=== PATIENT | male | born 1995 ===

== ENCOUNTER 2017-08-19 10:07 | Emergency (ER) | payer MEDICAID ==
[2017-08-19 10:07] VITALS: BMI 24.3
[2017-08-19 10:15] VITALS: BP 106/63; PULSE 60; RESP 20; TEMP 97.4; O2SAT 100
--- NOTE | 2017-08-19 10:30 | ED PDOC ---
HPI: General Adult Time Seen by Provider: 08/19/17 10:30 Chief Complaint (Nursing): Allergic Reaction Chief Complaint (Provider): sore throat History Per: Patient Additional Complaint(s): 22-year-old male presents with sore throat for 2 days. Patient states that throat feels inflamed and itchy. He is tolerating liquids and solids and denies shortness of breath. Patient is also requesting to be tested for gonorrhea and Chlamydia. Patient states during intercourse a couple days ago the condom broke. He denies any symptoms of any STD at this time. No dysuria, penile discharge, rash or lesions to genitalia. No cough, fever or chills. PMD: Dr. Gomez Past Medical History Reviewed: Historical Data, Nursing Documentation, Vital Signs Vital Signs: Last Vital Signs Temp 97.4 F L 08/19/17 10:14 Pulse 60 08/19/17 10:14 Resp 20 08/19/17 10:14 BP 106/63 08/19/17 10:14 Pulse Ox 100 08/19/17 10:55 - Medical History PMH: Asthma - Surgical History Surgical History: Hernia Repair - Family History Family History: States: No Known Family Hx - Living Arrangements Living Arrangements: With Family - Social History Current smoker - smoking cessation education provided: No Alcohol: Social Drugs: Denies - Home Medications Home Medications: Ambulatory Orders Medication Instructions Recorded Docusate [Colace] 100 mg PO DAILY #10 cap 05/30/16 Azithromycin [Zithromax] 250 mg PO DAILY #6 tab 08/19/17 - Allergies Allergies/Adverse Reactions: Allergies Allergy/AdvReac Type Severity Reaction Status Date / Time No Known Allergies Allergy Verified 05/04/16 10:29 Review of Systems ROS Statement: Except As Marked, All Systems Reviewed And Found Negative Constitutional: Negative for: Fever ENT: Positive for: Throat Pain. Negative for: Nose Congestion Cardiovascular: Negative for: Chest Pain Respiratory: Negative for: Cough, Shortness of Breath Gastrointestinal: Negative for: Nausea, Vomiting Genitourinary Male: Negative for: Dysuria, Frequency, Incontinence, Hematuria, Penile Discharge, Scrotal Pain, Rash, Penile Pain Physical Exam - Reviewed Nursing Documentation Reviewed: Yes Vital Signs Reviewed: Yes - Physical Exam Appears: Positive for: Well, Non-toxic, No Acute Distress Skin: Negative for: Rash Eye Exam: Positive for: Normal appearance ENT: Positive for: Pharyngeal Erythema, Tonsillar Exudate, Tonsillar Swelling. Negative for: Nasal Congestion Cardiovascular/Chest: Positive for: Regular Rate, Rhythm Respiratory: Positive for: Normal Breath Sounds Gastrointestinal/Abdominal: Positive for: Soft. Negative for: Tenderness, Distended, Guarding, Rebound Back: Negative for: L CVA Tenderness, R CVA Tenderness Extremity: Positive for: Normal ROM Neurologic/Psych: Positive for: Alert, Oriented - Laboratory Results Urine dip results: Negative for: Leukocyte Esterase, Blood, Nitrate, Ketones, Glucose, Bilirubin, Protein - ECG O2 Sat by Pulse Oximetry: 100 Pulse Ox Interpretation: Normal Medical Decision Making Medical Decision Makin22 year old with sore throat Plan: Throat culture CHL/GC culture Urine culture Urine dip Patient given prescription for Zithromax, will treat throat infection empirically given clinical presentation. Throat culture was sent. Patient instructed to take ibuprofen for pain as needed. He was advised to follow up with primary doctor in 2-3 days. Disposition - Clinical Impression Clinical Impression: Pharyngitis, Possible exposure to STD - Patient ED Disposition Is Patient to be Admitted: No Counseled Patient/Family Regarding: Studies Performed, Diagnosis, Need For Followup, Rx Given - Disposition Referrals: Luis Fernando Gomez MD [Primary Care Provider] - Disposition: Routine/Home Disposition Time: 10:53 Condition: STABLE Additional Instructions: Take rx meds as directed. Over the counter ibuprofen for pain as needed. Contact ED in 2-3 days for culture results. Follow up with primary care doctor. Prescriptions: Azithromycin [Zithromax] 250 mg PO DAILY #6 tab Instructions: Sore Throat in Adults, Screening for Sexually Transmitted Infections Forms: [employer] (Bengali)
== END 2017-08-19 12:31 | disposition home or self-care (01) ==
LOC: SUPCPDRO 10:07 → H.ER 10:07
DX: J02.9 Acute pharyngitis, unspecified (principal); Z20.2 Contact with and (suspected) exposure to infections with a predominantly sexual mode of transmission